=== PATIENT | male | born 1995 | race African-American/Black ===

== ENCOUNTER 2018-09-14 00:14 | Emergency (ER) | payer OTHER ==
[~2018-09-14] VITALS: Ht 193 cm; Wt 86.2 kg
--- NOTE | 2018-09-14 00:48 | PHYS DOC ---
Adult General Chief Complaint Chief Complaint: MULTIPLE COMPLAINTS HPI HPI Patient is a 23 year old male who presents with several complaints. #1. Cough with some blood-tinged sputum today. Patient is been coughing for several days. The blood-tinged sputum was today. Denies any fever. Denies any difficulty breathing. Has taken no medicines to help. Nothing seems to make it better or worse. 2. Nosebleed. This is been going on intermittently for the past year. No recent nosebleed. Patient thinks that this may be contributing to complaint #1. 3 dysuria that has been present for several months. Notes hematuria with urination approximately 2000 tonight. Has urinated 2 times since then without any overt blood in the urine. Denies any back pain or flank pain. Denies any fever. Denies any discharge from the penis. Denies any testicular pain. Reports she is sexually active with one partner. No homosexual intercourse. No trauma. Feels a pressure sensation with urination. Has taken no medicine to help. Has not been on any recent NSAIDs. Review of Systems Review of Systems Constitutional: Denies fever or chills [] Eyes: Denies change in visual acuity, redness, or eye pain [] HENT: Denies nasal congestion or sore throat [] Respiratory: See history of present illness[] Cardiovascular: No additional information not addressed in HPI [] GI: Denies abdominal pain, nausea, vomiting, bloody stools or diarrhea [] : See history of present illness[] Musculoskeletal: Denies back pain or joint pain [] Integument: Denies rash or skin lesions [] Neurologic: Denies headache, focal weakness or sensory changes [] Endocrine: Denies polyuria or polydipsia [] All other systems were reviewed and found to be within normal limits, except as documented in this note. Physical Exam Physical Exam Constitutional: Well developed, well nourished, no acute distress, non-toxic appearance. [] HENT: Normocephalic, atraumatic, bilateral external ears normal, oropharynx moist, no oral exudates, nose normal. No septal hematoma, no bleeding site noted [] Eyes: PERRLA, EOMI, conjunctiva normal, no discharge. [] Neck: Normal range of motion, no tenderness, supple, no stridor. [] Cardiovascular:Heart rate regular rhythm, no murmur [] Lungs & Thorax: Bilateral breath sounds clear to auscultation [] Abdomen: Bowel sounds normal, soft, no tenderness, no masses, no pulsatile masses. : Normal male, circumcised, bilateral descended testes, no tenderness. No abnormal lie. Normal cremasteric reflex. No urethral discharge. No tenderness to palpation.[] Skin: Warm, dry, no erythema, no rash. [] Back: No tenderness, no CVA tenderness. [] Extremities: No tenderness, no cyanosis, no clubbing, ROM intact, no edema. [] Neurologic: Alert and oriented X 3, normal motor function, normal sensory function, no focal deficits noted. [] Psychologic: Affect normal, judgement normal, mood normal. [] Current Patient Data Vital Signs Vital Signs Date Time Temp Pulse Resp B/P (MAP) Pulse Ox O2 Delivery O2 Flow Rate FiO2 09/14/18 00:35 98.2 65 16 150/83 (105) 98 Room Air 98.2 Lab Values Laboratory Tests Test 09/14/18 00:55 09/14/18 01:30 White Blood Count 4.9 x10^3/uL (4.0-11.0) Red Blood Count 4.28 x10^6/uL (4.30-5.70) L Hemoglobin 13.5 g/dL (13.0-17.5) Hematocrit 39.5 % (39.0-53.0) Mean Corpuscular Volume 92 fL (79-100) Mean Corpuscular Hemoglobin 31 pg (25-35) Mean Corpuscular Hemoglobin Concent 34 g/dL (31-37) Red Cell Distribution Width 12.4 % (11.5-14.5) Platelet Count 156 x10^3/uL (140-400) Neutrophils (%) (Auto) 39 % (31-73) Lymphocytes (%) (Auto) 50 % (24-48) H Monocytes (%) (Auto) 10 % (0-9) H Eosinophils (%) (Auto) 0 % (0-3) Basophils (%) (Auto) 1 % (0-3) Neutrophils # (Auto) 1.9 x10^3uL (1.8-7.7) Lymphocytes # (Auto) 2.4 x10^3/uL (1.0-4.8) Monocytes # (Auto) 0.5 x10^3/uL (0.0-1.1) Eosinophils # (Auto) 0.0 x10^3/uL (0.0-0.7) Basophils # (Auto) 0.0 x10^3/uL (0.0-0.2) Prothrombin Time 14.8 SEC (11.7-14.0) H Prothrombin Time INR 1.2 (0.8-1.1) H Sodium Level 142 mmol/L (136-145) Potassium Level 3.6 mmol/L (3.5-5.1) Chloride Level 105 mmol/L (98-107) Carbon Dioxide Level 28 mmol/L (21-32) Anion Gap 9 (6-14) Blood Urea Nitrogen 12 mg/dL (8-26) Creatinine 1.2 mg/dL (0.7-1.3) Estimated GFR (Cockcroft-Gault) 90.8 Glucose Level 99 mg/dL (70-99) Calcium Level 9.0 mg/dL (8.5-10.1) Urine Collection Type Unknown Urine Color Yellow Urine Clarity Clear Urine pH 7.0 Urine Specific [place] 1.025 Urine Protein Negative mg/dL (NEG-TRACE) Urine Glucose (UA) Negative mg/dL (NEG) Urine Ketones (Stick) Negative mg/dL (NEG) Urine Blood Negative (NEG) Urine Nitrite Negative (NEG) Urine Bilirubin Negative (NEG) Urine Urobilinogen Dipstick 1.0 mg/dL (0.2 mg/dL) Urine Leukocyte Esterase Small (NEG) Urine RBC 0 /HPF (0-2) Urine WBC 11-20 /HPF (0-4) Urine Squamous Epithelial Cells Occ /LPF Urine Bacteria 0 /HPF (0-FEW) Urine Mucus Mod /LPF Laboratory Tests 09/14/18 00:55 Laboratory Tests 09/14/18 00:55 EKG EKG [] Radiology/Procedures Radiology/Procedures Chest x-ray shows no infiltrate, no effusion, no pneumothorax[] Course & Med Decision Making Course & Med Decision Making Pertinent Labs and Imaging studies reviewed. (See chart for details) Medical decision making: There does not appear to be an elevated white count, no infiltrate on chest x-ray, patient does appear to have urinary tract infection and will need follow-up with urology for this. The GC/chlamydia are still pending. Patient without overt symptoms of these will hold on treatment until the PCR returns. We will work to quiet down the cough with oral outpatient medication. ED course: Patient arrived, was placed in bed, in tolerate exam well. After the return of lab and x-ray findings these were communicated with the patient. Patient voiced understanding. All questions were answered.[] Dragon Disclaimer Dragon Disclaimer This electronic medical record was generated, in whole or in part, using a voice recognition dictation system. Departure Departure Impression: Primary Impression: Bronchitis Additional Impressions: Urinary tract infection Epistaxis Disposition: HOME, SELF-CARE Condition: GOOD Referrals: NO PCP (PCP) BORA HERNANDEZ MD Call for appointment today. What the office staff know that you were seen in the emergency department today. Patient Instructions: Bronchitis, Nosebleed, Urinary Tract Infection Additional Instructions: Drink plenty of fluids. Follow-up with your primary care doctor in 2 days. If you do not have one, list of local low-cost clinics as been provided for you. You also need to follow up with the urologist since urinary tract infections in males are rare. Take the medication as prescribed. Finish the entire course of the antibiotics. Most nosebleeds are due to dry air. Slather Vaseline on the inside of the nose to help keep the moisture in the tissues. Return to the ER if worsening pain, worsening bleeding with coughing, or any other concerns. Scripts Doxycycline Hyclate (DOXYCYCLINE HYCLATE) 100 Mg Tablet 100 MG PO BID, #20 TAB Prov: SHAKIRA HIGUERA DO 09/14/18 Guaifenesin/Dextromethorphan (MUCINEX DM ER 600-30 MG TABLET) 1 Each Tab.er.12h 1 EACH PO BID, #20 TAB.SR Prov: SHAKIRA HIGUERA DO 09/14/18 Problem Qualifiers Additional Impressions: Urinary tract infection Urinary tract infection type: site unspecified Hematuria presence: without hematuria Qualified Codes: N39.0 - Urinary tract infection, site not specified SHAKIRA HIGUERA DO Sep 14, 2018 00:48
[2018-09-14 01:06] LABS: BASO % 1 % (0-3); EOS % 0 % (0-3); HEMATOCRIT 39.5 % (39.0-53.0); HEMOGLOBIN 13.5 g/dL (13.0-17.5); LYMPH # 2.4 x10^3/uL (1.0-4.8); LYMPH % 50 % (24-48); MEAN CORPUSCULAR HEMOGLOBIN 31 pg (25-35); MEAN CORPUSCULAR HGB CONC 34 g/dL (31-37); MEAN CORPUSCULAR VOLUME 92 fL (79-100); MONO # 0.5 x10^3/uL (0.0-1.1); MONO % 10 % (0-9); NEUT # 1.9 x10^3uL (1.8-7.7); NEUT % 39 % (31-73); PLATELET COUNT 156 x10^3/uL (140-400); RED BLOOD COUNT 4.28 x10^6/uL (4.30-5.70); RED CELL DISTRIBUTION WIDTH 12.4 % (11.5-14.5); WHITE BLOOD COUNT 4.9 x10^3/uL (4.0-11.0)
[2018-09-14 01:14] LABS: CREATININE 1.2 mg/dL (0.7-1.3); GFR 90.8; POTASSIUM 3.6 mmol/L (3.5-5.1)
[2018-09-14 01:15] LABS: PROTHROMBIN TIME PATIENT 14.8 SEC (11.7-14.0)
[2018-09-14 01:39] LABS: BILIRUBIN,URINE NEGATIVE (NEG); CLARITY,URINE CLEAR; COLOR,URINE YELLOW; NITRITE,URINE NEGATIVE (NEG); PROTEIN,URINE NEGATIVE (NEG-TRACE)
[2018-09-14 01:44] LABS: BACTERIA,URINE 0 /HPF (0-FEW); RBC,URINE 0 /HPF (0-2); SQUAMOUS EPITHELIAL CELL,UR OCC /LPF
[2018-09-14 02:32] VITALS: BP 138/78
[2018-09-14] MEDS ORDERED: DOXY100T PO (03:14)
[2018-09-14] MEDS ORDERED: GUAI-108 PO (03:14)
--- NOTE | 2018-09-14 09:23 | RAD ---
CHEST PA LATERAL History: COUGH, SHORT OF BREATH Comparison: None. Findings: 2 views of the chest are submitted. There is no infiltrate, pneumothorax, or effusion. The cardiac silhouette is within normal limits in size. The trachea is in the midline. No acute osseous abnormality is identified. Impression: 1. There is no evidence of acute cardiopulmonary disease. Electronically signed by: Victor Manuel Dave MD (09/14/2018 9:20 AM) [id number]
== END 2018-09-14 03:34 | disposition home or self-care (01) ==
LOC: ER 00:14
DX: J40 Bronchitis, not specified as acute or chronic (principal); N39.0 Urinary tract infection, site not specified; R04.0 Epistaxis
CPT/HCPCS: 36415; 71046; 80048; 81001; 85025; 85610; 87086; 87491; 87591; 99285-25

== ENCOUNTER 2019-11-22 16:57 | Emergency (ER) | payer OTHER ==
[~2019-11-22] VITALS: Ht 193 cm; Wt 84.0 kg
[~2019-11-22 16:57] MED LIST: DOXY100T PO; GUAI-108 PO
[2019-11-22 17:14] VITALS: BP 140/75
--- NOTE | 2019-11-22 17:17 | PHYS DOC ---
Past Medical History Past Medical History: No Pertinent History Past Surgical History: No Surgical History Alcohol Use: Rarely Drug Use: Marijuana Adult General Chief Complaint Chief Complaint: FLU SYMPTOM HPI HPI Patient is a 24 year old male who presents with 7 days of nausea, cough, fever, bodyaches. He states at 1300 today he took a half a cup of TheraFlu. He has not had anything for fever. He is febrile in the emergency room. Currently rating his overall discomfort at 9 out of 10. Review of Systems Review of Systems Constitutional: fever or chills [] Respiratory: cough or denies shortness of breath [] GI: Low appetite. Denies abdominal pain, nausea, vomiting, bloody stools or diarrhea [] Musculoskeletal: Gneralized bodyaches. Denies back pain or joint pain [] All other systems were reviewed and found to be within normal limits, except as documented in this note. Current Medications Current Medications Current Medications Medications (Trade) Dose Ordered Sig/Jacky Start Time Stop Time Status Last Admin Dose Admin Ibuprofen (Motrin) 600 mg 1X ONCE 11/22/19 17:15 11/22/19 17:16 DC 11/22/19 17:30 600 MG Allergies Allergies Allergies Coded Allergies Type Severity Reaction Last Updated Verified No Known Drug Allergies 11/22/19 No Physical Exam Physical Exam Constitutional: Well developed, well nourished, no acute distress, non-toxic appearance. [] HENT: Normocephalic, atraumatic, bilateral external ears normal, oropharynx moist, no oral exudates, nose normal. Throat red without exudates or swelling. [] Eyes: PERRLA, EOMI, conjunctiva normal, no discharge. [] Neck: Normal range of motion, no tenderness, supple, no stridor. [] Cardiovascular:Heart rate regular rhythm, no murmur [] Lungs & Thorax: Bilateral upper breath coarse sounds and lower lobes clear to auscultation [] Abdomen: Bowel sounds normal, soft, no tenderness, no masses, no pulsatile masses. [] Skin: Warm, dry, no erythema, no rash. [] Back: No tenderness, no CVA tenderness. [] Extremities: No tenderness, no cyanosis, no clubbing, ROM intact, no edema. [] Neurologic: Alert and oriented X 3, normal motor function, normal sensory function, no focal deficits noted. [] Psychologic: Affect normal, judgement normal, mood normal. [] Current Patient Data Vital Signs Vital Signs Date Time Temp Pulse Resp B/P (MAP) Pulse Ox O2 Delivery O2 Flow Rate FiO2 11/22/19 17:14 100.7 86 20 140/75 (96) 98 Room Air 100.7 Lab Values Laboratory Tests Test 11/22/19 17:11 Influenza Type A Antigen Negative (NEGATIVE) Influenza Type B Antigen Positive (NEGATIVE) EKG EKG [] Radiology/Procedures Radiology/Procedures [] Impressions: [facility] [address] [place] [address] IMAGING REPORT Signed PATIENT: DEON FISHER ACCOUNT: [id number] : 1995 LOCATION: ER AGE: 24 SEX: M EXAM STATUS: REG ER ORD. PHYSICIAN: BRANNON VALDEZ APRN REASON: cough, chills x1 week PROCEDURE: CHEST PA & LATERAL CHEST PA LATERAL Clinical indications: Cough and chills for one week. COMPARISON: 09/14/2018. Findings: No acute lung infiltrate or pleural effusion or pulmonary edema or lung mass or pneumothorax is seen. The heart size, pulmonary vasculature, mediastinum and both larry are unremarkable. The osseous structures appear intact. Impression: No acute radiographic abnormality is seen. Electronically signed by: Mari Landeros MD (11/22/2019 5:33 PM) [id number] DICTATED and SIGNED BY: MARI LANDEROS MD DATE: 11/22/19 1733 Course & Med Decision Making Course & Med Decision Making Alert and oriented. Speaks in full clear sentences. Ambulatory with a steady gait. Skin pink warm and dry. Throat is reddened but there is no swelling or exudates. Upper lung lobes have coarse sounds in the lower lung lobes are clear. Bilateral tympanic white. Denies vomiting, diarrhea, chest pain, shortness of air, dizziness, headache, syncope, numbness or tingling, weakness, visual change s. Patient is given ibuprofen in the emergency room. Dragon Disclaimer Dragon Disclaimer This electronic medical record was generated, in whole or in part, using a voice recognition dictation system. Departure Departure Impression: Primary Impression: Influenza B Disposition: HOME, SELF-CARE Condition: STABLE Referrals: NO PCP (PCP) Patient Instructions: Influenza, Adult Additional Instructions: Drink plenty of fluids. Take medication as prescribed. Follow-up with her primary care doctor. Take Tylenol every 4 hours or ibuprofen every 6 hours. Scripts Benzonatate (TESSALON PERLE) 100 Mg Capsule 1 CAP PO TID, #30 CAP Prov: BRANNON VALDEZ APRN 11/22/19 Methylprednisolone (MEDROL) 4 Mg Tab.ds.pk 1 PKG PO UD, #1 PKG Prov: BRANNON VALDEZ [employer]Y [employer]IP[employer]ER 11/22/19 Ibuprofen (IBUPROFEN) 600 Mg Tablet 600 MG PO PRN Q6HRS PRN for INFLAMMATION, #20 TAB Prov: BRANNON VALDEZ APRN 11/22/19 BRANNON VALDEZ APRN Nov 22, 2019 17:17
[2019-11-22] MEDS: IBUPROFEN 200 MG TABLET. PO ONE (17:30)
--- NOTE | 2019-11-22 17:37 | RAD ---
CHEST PA LATERAL Clinical indications: Cough and chills for one week. COMPARISON: 09/14/2018. Findings: No acute lung infiltrate or pleural effusion or pulmonary edema or lung mass or pneumothorax is seen. The heart size, pulmonary vasculature, mediastinum and both larry are unremarkable. The osseous structures appear intact. Impression: No acute radiographic abnormality is seen. Electronically signed by: Moreno Brown MD (11/22/2019 5:33 PM) [place] [id number]
[2019-11-22 17:51] LABS: INFLUENZA A PATIENT NEGATIVE (NEGATIVE)
[2019-11-22 17:53] LABS: INFLUENZA B PATIENT POSITIVE (NEGATIVE)
[2019-11-22] MEDS ORDERED: BENZ100C PO (17:57)
[2019-11-22] MEDS ORDERED: METH4TAB2 PO (17:57)
[2019-11-22] MEDS ORDERED: IBUP-1007 PO (17:57)
== END 2019-11-22 18:12 | disposition home or self-care (01) ==
LOC: ER 16:57
DX: J10.1 Influenza due to other identified influenza virus with other respiratory manifestations (principal)
CPT/HCPCS: 71046; 87804; 99285-25

== ENCOUNTER → 2020-09-04 | Outpatient (CLI) | payer OTHER ==
[~2020-09-04] MED LIST changes: +BENZ100C PO; +IBUP-1007 PO; +METH4TAB2 PO
== END ==
LOC: ECHO 10:58
PROVIDERS: ATTEND Internal Medicine Cardiovascular Disease
DX: R55 Syncope and collapse (principal)
CPT/HCPCS: 93306

== ENCOUNTER → 2020-09-05 | Outpatient (CLI) | payer OTHER ==
[~2020-09-05] VITALS: Ht 190.5 cm; Wt 93.0 kg
[2020-09-05 14:51] VITALS: BP 105/57
[2020-09-05 14:56] VITALS: BP 93/49
[2020-09-05 15:01] VITALS: BP 97/71
[2020-09-05 15:06] VITALS: BP 96/62
--- NOTE | 2020-09-07 15:51 | CARD ---
MR#: [id number] Date of Study: 09/05/2020 Ordering Physician: PRIYANKA CHAVEZ, Referring Physician: PRIYANKA CHAVEZ Tech: Loreta Pierce RN APPROVED REPORT EXAM pt is A&O x4. denies pain, nausea,or dizziness Attending Nurse: Loreta Pierce RN HISTORY The Patient is a 25 year-old male with a history of family of DM INDICATIONS syncope- pt feels like he just needs to get some air, is hot and diaphoretic, feels somewhat SOA. he says that the feeling can recede if he gets some fresh cool air or a cold drink. PROCEDURE After explaining the risks, benefits, and alternative options, informed consent was obtained from the patient. Base - lineRhythm: Sinus BradycardiaHR: 56 bpmBP: 105/80ziIlX8 Sat: 98 % Flat14:45Rhythm: Sinus BradycardiaHR: 56 bpmBP: 105/15piWhK0 Sat: 98 % Flat14:50Rhythm: SinusHR: 58 bpmO2 Sat: 98 % Flat14:55Rhythm: SinusHR: 80 bpmBP: 93/43fcZwX9 Sat: 97 % 80' Tilt15:00Rhythm: SinusHR: 80 bpmBP: 97/23rlZbE2 Sat: 94 % 80' Tilt15:05Rhythm: SinusHR: 74 bpmBP: 96/19kxMmD2 Sat: 94 % 80' Tilt15:10Rhythm: SinusHR: 74 bpmBP: 110/59tvNtX8 Sat: 94 % 80' Tilt15:15Rhythm: SinusHR: 86 bpmBP: 114/94qnTpW2 Sat: 94 % 80' Tilt15:20Rhythm: SinusHR: 82 bpmBP: 113/22iaEjY7 Sat: 97 % 80' Tilt15:25Rhythm: SinusHR: 80 bpmBP: 108/89ytPzK3 Sat: 96 % Flat15:30Rhythm: Sinus BradycardiaHR: 54 bpmBP: 109/30sgVeF7 Sat: 98 % Flat15:35Rhythm: Sinus BradycardiaHR: 53 bpmBP: 101/79gkMyQ0 Sat: 98 % pt states he felt a little weird when he was tilted up- not really dizzy , just odd and he felt like he had to take a deep breath, this lasted just a quick moment. Discussed with patient about starting an event diary that would note when he last ate, what he ate, if he recently had caffeine, what he did to make the sensation of passing out recede COMPLICATIONS none CONCLUSION Tilt table test negative for neurocardiogenic syncope. Signed by : Priyanka Chavez, Electronically Approved : 09/07/2020 15:51:28
== END ==
LOC: CVOBS 14:12
PROVIDERS: ATTEND Internal Medicine Cardiovascular Disease
DX: R55 Syncope and collapse (principal)
CPT/HCPCS: 93660